=== PATIENT | female | born 1965 | race Caucasian/White ===

== ENCOUNTER 2022-07-26 06:04 | Observation (INO) ==
--- NOTE | 2022-07-02 16:25 | PAT Medication Instructions ---
Medication Instructions Date of Service July 02, 2022 Home Medications bupropion HCl 150 mg 24 hr tablet, extended release (Wellbutrin XL) 150 mg PO QAM cholecalciferol (vitamin D3) 125 mcg (5,000 unit) tablet (Vitamin D3) 125 mcg PO QAM coenzyme Q10 10 mg capsule (Co Q-10) 10 mg PO QAM collagen,hydrolysate 500 mg-biotin 800 mcg-ascorbic acid 50 mg capsule (Collagen 1500 Plus C) 3 cap PO HS cyanocobalamin (vitamin B-12) 5,000 mcg disintegrating tablet 5,000 mcg PO HS duloxetine 60 mg capsule,delayed release 60 mg PO BID estradiol 0.1 mg/24 hr weekly transdermal patch 0.1 mg topical 2XWK gabapentin 300 mg capsule 300 mg PO HS lansoprazole 30 mg capsule,delayed release 30 mg PO BID levothyroxine 50 mcg tablet 50 mcg PO QAM One-A-Day Women's 50 Plus 1 tab PO QAM naproxen sodium 220 mg tablet (Aleve) 440 mg PO BID ASK your surgeon for instructions naproxen sodium 220 mg tablet (Aleve) 440 mg PO BID STOP taking 2 weeks before surgery (or as soon as possible if surgery is within 2 weeks) coenzyme Q10 10 mg capsule (Co Q-10) 10 mg PO QAM collagen,hydrolysate 500 mg-biotin 800 mcg-ascorbic acid 50 mg capsule (Collagen 1500 Plus C) 3 cap PO HS STOP taking 24 hours before surgery estradiol 0.1 mg/24 hr weekly transdermal patch 0.1 mg topical 2XWK DO NOT take the morning of surgery cholecalciferol (vitamin D3) 125 mcg (5,000 unit) tablet (Vitamin D3) 125 mcg PO QAM One-A-Day Women's 50 Plus 1 tab PO QAM Take morning of surgery With a small sip of water, OTHERWISE NOTHING TO EAT OR DRINK AFTER MIDNIGHT: bupropion HCl 150 mg 24 hr tablet, extended release (Wellbutrin XL) 150 mg PO QAM duloxetine 60 mg capsule,delayed release 60 mg PO BID lansoprazole 30 mg capsule,delayed release 30 mg PO BID levothyroxine 50 mcg tablet 50 mcg PO QAM Take evening before surgery cyanocobalamin (vitamin B-12) 5,000 mcg disintegrating tablet 5,000 mcg PO HS duloxetine 60 mg capsule,delayed release 60 mg PO BID gabapentin 300 mg capsule 300 mg PO HS lansoprazole 30 mg capsule,delayed release 30 mg PO BID Other Notes If you have any questions please call us at [phone] or [phone] or [phone] or [phone]
--- NOTE | 2022-07-04 12:08 | Anesthesiology Consultation ---
Date of Service July 04, 2022 Assessment & Plan (1) Encounter for pre-operative examination: - Pt reports upcoming PCP pre-op evaluation 07/06/22. - PAT testing to be faxed to PCP. Outpatient joint assessment: Patient is currently scheduled for inpatient pathway. If re-evaluated pending system levels during current pandemic/surgeon requests outpatient pathway, patient is/is not acceptable candidate for outpatient joint program from anesthesia standpoint pending surgeon's office assessment of pt motivation/support/completion of same day joint program preop requirements. Chart Review Chart Review: Pending: Refer to Additional Notes / Consult section and Patient seen in Pre Admission Testing Teaching & Discussion Pre-Anesthesia Teaching/Discussion Notes: Instructed NPO after midnight before surgery, except medications with 15 cc of water. Medication instructions provided according to the PAT guidelines. History Surgery Operation Date: 07/26/22 08:50 Proposed Procedures p Right Total Hip Arthroplasty - Donnie Dove MD Height/Weight Height: 5 ft 6 in Weight: 100.698 kg Allergies Allergy/AdvReac Type Severity Reaction Status Date / Time No Known Allergies Allergy Verified 06/29/22 11:17 Medications Home Medications Medication Instructions Recorded Confirmed Last Taken bupropion HCl 150 mg 24 hr tablet, 150 mg PO QAM 06/29/22 06/29/22 Unknown extended release (Wellbutrin XL) cholecalciferol (vitamin D3) 125 125 mcg PO QAM 06/29/22 06/29/22 Unknown mcg (5,000 unit) tablet (Vitamin D3) coenzyme Q10 10 mg capsule (Co 10 mg PO QAM 06/29/22 06/29/22 Unknown Q-10) collagen,hydrolysate 500 mg-biotin 3 cap PO HS 06/29/22 06/29/22 Unknown 800 mcg-ascorbic acid 50 mg capsule (Collagen 1500 Plus C) cyanocobalamin (vitamin B-12) 5,000 mcg PO HS 06/29/22 06/29/22 Unknown 5,000 mcg disintegrating tablet duloxetine 60 mg capsule,delayed 60 mg PO BID 06/29/22 06/29/22 Unknown release estradiol 0.1 mg/24 hr weekly 0.1 mg topical 2XWK 06/29/22 06/29/22 Unknown transdermal patch gabapentin 300 mg capsule 300 mg PO HS 06/29/22 06/29/22 Unknown lansoprazole 30 mg capsule,delayed 30 mg PO BID 06/29/22 06/29/22 Unknown release levothyroxine 50 mcg tablet 50 mcg PO QAM 06/29/22 06/29/22 Unknown bdfbpvbhbjvu-tjcuqmcs-pmezdya-folic 1 tab PO QAM 06/29/22 06/29/22 Unknown acid 400 mcg-vit K1 20 mcg tablet (One-A-Day Women's 50 Plus) naproxen sodium 220 mg tablet 440 mg PO BID 06/29/22 06/29/22 Unknown (Bam) Past Medical History Medical History Chronic back pain Depression Fibromyalgia GERD (gastroesophageal reflux disease) controlled, stable per pt Hx MRSA infection 2018 > resolved Hyperlipidemia Hypothyroidism IBS (irritable bowel syndrome) Patient denies h/o stroke, seizures, heart attack, heart failure, DM, HTN, blood clots or blood transfusions. Exercise / Class Metabolic Activity III < 4 Walking/Shop/Light housework (denies CP or SOB with usual activities, less than 8 steps in home) Past Surgical History Surgical History H/O abdominoplasty History of colonoscopy History of dilatation and curettage History of esophagogastroduodenoscopy (EGD) History of hysterectomy History of nasal septoplasty History of Ruthie fundoplication History of tonsillectomy History of tooth extraction Hx of LASIK Nausea and vomiting after administration of anesthetic agent Single episode Past Anesthesia History No Hx of Anesthesia Complications and Other (sister slow to wake) History of PONV No Hx of Motion Sickness and History of PONV (isolated episodes, denies any PONV with subsequent surgeries) Social History Smoking Status: Former smoker Do You Dip or Chew Tobacco: No Smoking End Date: 30 yrs ago Hx Alcohol Use: Yes Alcohol type: beer alcohol intake frequency: a few times a month Hx Substance Use: No substance use type: does not use Review of Systems Snoring, denies witnesed apneas. Patient denies chest pain, shortness of breath, dyspnea on exertion, fever, chills, cough, wheezing, or palpitations. Physical Exam Vital Signs Vitals BP 130/84 P 75 TEMP 98.9 SP02 100% on RA RESP 18 Physical Full cervical extension range of motion without pain TMD 3.5 finger breadths Mallampati Score 3 Dentition: intact, permanent bridge right upper side and several caps throughout; denies chipped or loose teeth Lungs: normal respiratory effort. Clear throughout to auscultation, no adventitious breath sounds Cardiac: regular rate and rhythm, no murmurs noted Carotid arteries: negative bruit bilat Lab Results Anesthesia Preop Results Results Anesthesia Widget: WBC 6.80 K/ul (4.8-10.8) 07/04/22 Hgb 14.3 g/dl (12.0-16.0) 07/04/22 Hct 42.1 % (34.1-44.9) 07/04/22 Plt 294 K/uL (130-400) 07/04/22 Na 140 mmol/L (136-145) 07/04/22 K 4.9 mmol/L (3.5-5.1) 07/04/22 Cl 106 mmol/L (98-107) 07/04/22 CO2 27 mmol/L (21-32) 07/04/22 BUN 16 mg/dl (6-23) 07/04/22 Creat 0.75 mg/dl (0.6-1.2) 07/04/22 Glucose Level 95 mg/dl (70-99(Fasting)) 07/04/22 PT 10.4 Seconds (9.0-12.0) 07/04/22 PTT 27.0 Seconds (21.0-31.0) 07/04/22 INR 1.0 (0.9-1.1) 07/04/22 HA1c 5.4 % (4.5-5.6) 07/04/22 Urine Color Yellow 07/04/22 Urine Appearance Clear (Clear) 07/04/22 Urine pH 6.5 (4.5-7.5) 07/04/22 Urine Specific [place] 1.008 (1.000-1.030) 07/04/22 Urine Protein Negative (Negative) 07/04/22 Urine Glucose (UA) Negative (Negative) 07/04/22 Urine Ketones Negative (Negative) 07/04/22 Urine Blood Negative (Negative) 07/04/22 Urine Nitrite Negative (Negative) 07/04/22 Urine Bilirubin Negative (Negative) 07/04/22 Urine Urobilinogen Negative (Negative) 07/04/22 Urine Leukocyte Esterase Negative (Negative) 07/04/22 Blood Type B Positive 07/04/22 Antibody Screen NEGATIVE 07/04/22 Testing Electrocardiogram Date: 07/04/22 NSR, rate 69 bpm Left anterior fascicular block COVID-19 Risk Screen Screening Information COVID-19 Screen Date: 07/04/22 Exposure 21 Days Family/Household +COVID Last 21 Days: No Exposure 10 Days Any COVID Exposure Last 10 Days: No Symptoms Last 10 Days Experienced COVID Sx Last 10 Days: No + COVID 0-90 Days COVID + in Last 0-90 Days: No
--- NOTE | 2022-07-04 13:59 | History & Physical Report ---
Date of Service July 04, 2022 Assessment & Plan (1) Osteoarthritis of right hip: Plan: PRE-OP Diagnosis: Right Hip Osteoarthritis Planned Procedure: Right Total Hip Arthroplasty Plan: Patient is scheduled to undergo this procedure at the [facility] with a 23-hour observation admission with Dr. Dove on , July 26, 2022. Risks and complications of the procedure such as: Infection, bleeding, pain, scarring, nerve blood vessel damage, weakness, wound problems, stiffness, incomplete relief of symptoms, hardware failure, hardware loosening, wear, fracture, tendon or ligament injury, dislocation, leg length inequality, blood clots, Embolism, heart attack, stroke and were explained to the patient at her visit today. Informed consent to perform the procedure was obtained on the morning of surgery. Patient also understands risks of proceeding with surgical intervention during the COVID-19 pandemic. Currently patient is asymptomatic and she is not in contact with anyone that is currently positive for the virus. Patient has an appointment to meet with anesthesia later this morning and while there will obtain CBC with differential, complete metabolic panel, PT/INR, blood type and screen, urinalysis, urine culture and sensitivity, EKG, hemoglobin A1c and a nasal culture for MRSA. Patient will also need preoperative medical clearance from their primary care provider. Patient states that she plans on doing in-home physical therapy for the first 1 to 2 weeks postoperatively with [facility] home [facility]. Patient states that she will most likely elect to do outpatient physical therapy at a facility near her home. Patient will need a walker, raised toilet seat, shower chair and a hip kit. During today's visit we reviewed the total hip packet as well as precautions. We discussed discharge planning from the hospital. I provided paperwork to obtain a handicap placard for their vehicle. We discussed lectures offered by [facility] in regards to joint replacement surgery via Zoom. I advised the patient that upon discharge from hospital we will prescribe a narcotic pain medication and anti-inflammatory. Patient will also be on an 81 mg aspirin twice daily for blood clot prevention. Patient will be scheduled for 2-week postoperative follow-up visit with myself on August 08 at 10:45 AM. At that visit we will Provide the patient with an order for outpatient physical therapy and rehab protocol. Patient verbalizes understanding of all information provided during today's visit. She thanks for the care that she received. If she has questions or concerns that should arise prior to her surgery, she will contact clinic. This chart was completed utilizing [email or web address] voice recognition software. Grammatical errors, random word insertions, pronoun errors, and in complete sentences are an occasional consequence of the system. Any questions or concerns about the content, text, or information contained within the body of this dictation should be addressed directly to the physician for clarification. History of Present Illness Chief Complaint: Chief Complaint: Right hip pain Primary Care Provider: NO PCP History of Present Illness (including history relevant to procedure): This 57-year-old female presents to the clinic today for preoperative history and physical. Patient complains of a 10-year history of right hip and lower back pain. She was followed by pain management who felt that the issues were stemming from her back however for the past 6 months she has noticed her most significant pain in the right hip. She states that she received a ultrasound- guided corticosteroid injection that only alleviated her pain for about 3 days. Patient states that her pain is exacerbated with walking for long periods of time as well as with ascending or descending stairs. She states that recently the pain has migrated from her SI area to the groin. She states that her range of motion is very limited. She has failed all conservative measures and is ready to proceed with surgical intervention. Review Of Systems: A 12 point review of systems is performed and is unremarkable except for those things stated in the HPI and past medical history. Past Medical History: Problems: Right hip pain Overweight Hypercholesterolemia depression Hypothyroidism GERD Lower back pain History of MRSA Procedure History Procedure Procedure Date Comments Ruthie fundoplication Hysterectomy Tummy tuck Tonsillectomy LASEK surgery Allergies and Sensitivities: NKA Social history: Patient states she occasionally consumes alcohol (1-2 drinks per week). Patient states that she quit smoking in 1994. She denies any illicit drug use Family history: Heart disease, pernicious anemia and cancer Current Home Meds: (Last Updated 07/04 11:10) DULoxetine (DULoxetine 60 mg oral delayed release capsule) 60 mg PO Daily estradiol (Estradiol Patch 0.1 mg/24 hours twice weekly transdermal film, extended release) gabapentin (gabapentin 300 mg oral capsule) 300 mg PO Daily lansoprazole 30 mg PO Daily levothyroxine (levothyroxine 50 mcg (0.05 mg) oral tablet) 50 mcg PO Daily Allergies Allergy/AdvReac Type Severity Reaction Status Date / Time No Known Allergies Allergy Verified 06/29/22 11:17 Home Medications Medication Instructions Recorded Confirmed Type bupropion HCl 150 mg 24 hr tablet, 150 mg PO QAM 06/29/22 06/29/22 History extended release (Wellbutrin XL) cholecalciferol (vitamin D3) 125 125 mcg PO QAM 06/29/22 06/29/22 History mcg (5,000 unit) tablet (Vitamin D3) coenzyme Q10 10 mg capsule (Co 10 mg PO QAM 06/29/22 06/29/22 History Q-10) collagen,hydrolysate 500 mg-biotin 3 cap PO HS 06/29/22 06/29/22 History 800 mcg-ascorbic acid 50 mg capsule (Collagen 1500 Plus C) cyanocobalamin (vitamin B-12) 5,000 mcg PO HS 06/29/22 06/29/22 History 5,000 mcg disintegrating tablet duloxetine 60 mg capsule,delayed 60 mg PO BID 06/29/22 06/29/22 History release estradiol 0.1 mg/24 hr weekly 0.1 mg topical 2XWK 06/29/22 06/29/22 History transdermal patch gabapentin 300 mg capsule 300 mg PO HS 06/29/22 06/29/22 History lansoprazole 30 mg capsule,delayed 30 mg PO BID 06/29/22 06/29/22 History release levothyroxine 50 mcg tablet 50 mcg PO QAM 06/29/22 06/29/22 History rncnhuqgdupd-efxjugte-gqxzlmh-folic 1 tab PO QAM 06/29/22 06/29/22 History acid 400 mcg-vit K1 20 mcg tablet (One-A-Day Women's 50 Plus) naproxen sodium 220 mg tablet 440 mg PO BID 06/29/22 06/29/22 History (Aleve) Past Med/Surg History Medical History Chronic back pain Depression Fibromyalgia GERD (gastroesophageal reflux disease) controlled, stable per pt Hx MRSA infection 2018 > resolved Hyperlipidemia Hypothyroidism IBS (irritable bowel syndrome) Surgical History H/O abdominoplasty History of colonoscopy History of dilatation and curettage History of esophagogastroduodenoscopy (EGD) History of hysterectomy History of nasal septoplasty History of Ruthie fundoplication History of tonsillectomy History of tooth extraction Hx of LASIK Nausea and vomiting after administration of anesthetic agent Single episode Social History Smoking Status: Former smoker Second Hand Exposure: No; Hx Alcohol Use: Yes Alcohol type: beer Hx Substance Use: No Preferred Language: Swedish Communication Ability: Effective Productivity Engineer Required: No Beliefs That Will Affect Care: None Current Living Situation: Spouse Feels Safe at Home: Yes Assistive Devices: Glasses Review of Systems All systems reviewed & are unremarkable except as noted in Subjective Physical Exam Physical Exam: Physical Exam: (relevant to the procedure, including heart and lung evaluation) General: Alert and oriented x3 with proper grooming and hygiene Eyes: Pupils are equal and reactive to light with accommodation. Extraocular lids are intact Throat: Deferred due to COVID-19 precautions Cardiac: Regular rate and rhythm no murmurs or gallops appreciated Lungs: Clear to auscultation throughout with no wheezing, rales or rhonchi Abdomen: Obese, nondistended, nontender with NABS Extremities: Right hip; flexion is limited to 110 degrees with referred pain to the groin. Internal rotation to 0 degrees and external rotation to 20 degrees. Stinchfield and straight leg raise test are both positive. Patient has te nderness to palpation in the groin area. She has referred pain to this area with passive AB and AD duction of her lower extremity. Patient is neurovascular intact in the right lower extremity. Neuro: Cranial nerves II through XII intact no motor or sensory deficit Skin: Normal in appearance with no open skin areas or discharge Results & Data ([facility]) Diagnostic Findings Studies (relevant to the procedure): XR include, AP pelvis and 2 views of each hip with the patient: showed b/l central pattern osteoarthritis R>L.
[~2022-07-26 06:04] MED LIST: ACETAMINOPHEN 500 MG TAB PO SCH; CeleBREX 200 MG CAP PO SCH; FAMOTIDINE 20 MG TAB PO SCH; LR 500ML BOLUS, THEN 15ML/HR IV SCH; LR 60ML/HR IV SCH; ROPIVACAINE 0.5% HCL/PF 150 MG, BUPIVACAINE 0.75% MPF 20 ML, EPINEPHrine 0.15 MG, Ketor... INFIL SCH; Scopolamine 1 MG TDSY TD SCH; TRANEXAMIC ACID 1,000 MG **IV Intra-op IV SCH; TRANEXAMIC ACID 1,000 MG **IV Pre-op IV SCH; VANCOMYCIN HCL 1,500 MG in SODIUM CHLORIDE 0.9% 500 ML IV SCH; ceFAZolin 2000MG 2,000 MG/15 ML SYR IV SCH; dexAMETHasone 4 MG TAB PO SCH; traMADol HCL 50 MG TABLET PO SCH
[2022-07-26] MEDS ORDERED: BUPIVACAINE 0.5 % 5 MG/1 ML PF 10ML VIAL ONE (06:29)
[2022-07-26] MEDS ORDERED: MIDAZOLAM HCL 1 MG/ML 2ML VIAL ONE (07:30)
[2022-07-26] MEDS ORDERED: PROPOFOL IV EMULSION 10 MG/ML 20 ML VIAL IV ONE ×4 (07:30→10:21)
[2022-07-26] MEDS ORDERED: ePHEDrine sulfate 50 MG/ML AMP IV PRN (08:17)
[2022-07-26] MEDS ORDERED: ONDANSETRON INJ 2 MG/ML 2 ML VIAL IV PRN ×2 (08:17→11:12)
[2022-07-26] MEDS ORDERED: ATROPINE SULFATE 0.1 MG/ML 10ML SYR IV PRN (08:17)
[2022-07-26] MEDS ORDERED: fentaNYL citrate 100 MCG/2 ML VIAL IV PRN (08:17)
--- NOTE | 2022-07-26 08:52 | History & Physical Bridge Note ---
Date of Service July 26, 2022 History & Physical Bridge Note I have examined the patient, reviewed the History & Physical and in the interval since the performance of the History & Physical I have noted the following changes of clinical significance: no changes noted
[2022-07-26] MEDS ORDERED: ORTHO JOINT ANESTHETIC ONE (09:10)
[2022-07-26] MEDS ORDERED: ONDANSETRON INJ 2 MG/ML 2 ML VIAL ONE (09:45)
--- NOTE | 2022-07-26 11:04 | Operative Report ---
Post Operative Report Pre & Post Diagnosis Operation Date: 07/26/22 09:10 Pre-Op Diagnosis: Right hip Osteoarthritis Post-Op Diagnosis: Right hip Osteoarthritis I identified the patient and participated in the time-out.: Yes Procedure Operation Date: 07/26/22 09:10 Actual Procedures p Right Total Hip Arthroplasty(Right) - Donnie Dove MD Surgeon Donnie Dove MD Bleacher Operator NITO Jasmine PA-C. No resident or fellow was available to assist. Estimated Blood Loss 100 Findings Consistent with Post-Op Diagnosis Fluids 1750 cc Specimens Right femoral head Anesthesia Type Spinal MAC Complications none Disposition Disposition: Recovery Room Indications 57-year-old female, right hip pain refractory to conservative management. X- rays demonstrate severe osteoarthritis with joint space narrowing and subchondral sclerosis. I had a long discussion with her about the risks and benefits of surgery, alternatives, and expected outcomes. After reviewing all these she elected to proceed with surgery. All questions were answered. Informed consent was signed. Description of Procedure Patient was identified in the preoperative holding area and the surgical site, right hip, was marked. A spinal anesthetic was placed, then the patient was brought back to the main operating room, placed in the operating table and moved into the lateral decubitus position. Axillary roll was placed. All bony prominences were padded. Perioperative antibiotics and tranexamic acid 1 gram IV were administered. Operative extremity was prepped and draped in the normal sterile fashion. Prior to incision a multidisciplinary timeout was called. All in the room were in agreement. We began by making an incision for a posterior approach to the hip. We dissected down through subcutaneous tissues to the level of the fascia. The fascia was incised in line with the incision. Charnley bow was placed. The trochanteric bursa was excised. The piriformis and short external rotators were dissected off the posterior aspect of the hip. A box cut was made in the capsule. The femoral head was dislocated. The femoral neck cut was made at our preoperative template. The acetabulum was then exposed. The labrum was sharply excised. Contents of the cotyloid fossa were removed with electrocautery. We then began reaming at a size 8 mm less than our preoperative template. We reamed up by [address] way up to a size 54 mm cup. This gave us good bleeding cancellus bone circumferentially. The acetabulum was then irrigated out and dried. The real [place] Gription cup was then impacted down into position with 45 degrees of lateral opening and 25 degrees of anteversion. A single cancellous bone screw was placed up into the ilium. Excellent fixation was obtained. A trial liner for a 36 mm femoral head was then placed. Next we turned our attention to the femur. The lateral neck was removed with a box osteotome. Intramedullary guide was used followed by the lateralizing reamer. We then reamed up to a size 4 [place] stem. We then broached all the way up to a size 3. We began trialing with a high offset neck and a +5 head. Hip was reduced. Leg lengths were symmetric. The hip was stable in extension and external rotation, and stable in the sleeper position. At 90 degrees of hip flexion the hip could be internally rotated 35 degrees before levering out of the cup. Although the stability was reasonable I elected to trial a +4 face changing liner in the acetabulum to see if this would improve the stability exam. The acetabulum was re-exposed, and the neutral trial liner was removed, then replaced with a +410 degree face changing liner. The femoral broach was placed back in and we downsized the offset of the head to +1.5 given that we had increased the offset on the acetabulum. We then retrialed her stability exam. Again the leg lengths were symmetric, and she had full extension and external rotation. At 90 degrees of hip flexion she could now internally rotate 45 degrees before levering out of the cup. I was happy with the stability exam, therefore the trial components were removed and the real Altrx polyethylene +4, 10 degree face changing liner for a 36 mm femoral head was then impacted into the shell. The locking mechanism was checked to ensure that it had engaged which it had. The femur was re-exposed. The femoral canal was irrigated and dried. The real size 3 high offset [place] femoral stem was opened up. This was impacted down into position. It sat at the same level as the femoral trial. Therefore the 36 mm ceramic femoral head with a +1.5 mm offset was opened up and gently impacted down onto the trunnion. The hip was atraumatically reduced. Another 1 gram of IV tranexamic acid was started prior to closure. The wound was irrigated out with sterile Betadine solution. The periarticular injection cocktail was then placed. The short external rotators, piriformis, and posterior capsule were repaired through drill holes in the greater trochanter using #2 Vicryl. The fascia was run with a looped #1 PDS. The subcutaneous layer was closed with #1 PDS. The dermal layer was closed with 2-0 Vicryl. Zip line was used for the skin followed by a Silverlon dressing. A compressive dressing was then placed. The patient was then rolled supine. Leg lengths were rechecked and were symmetric. An abduction pillow was placed. Sedation was lifted and the patient was transferred to recovery room in stable condition. Summary of implants: Depuy [place] Gription Acetabular Shell Sector Cup, 54 mm outer diameter [place] Cancellous bone screw, 6.5 x 35 mm [place] hole eliminator [place] Altrx Polyethylene +4, 10 degree face changing liner, with a 36 mm in ner diameter DePuy Winchester Femoral stem with [place], 12/14 taper, size 3 high offset 36 mm ceramic femoral head with +1.5 offset Postoperative course: Patient will be admitted to the hospital from the recovery room. Patient will be weightbearing as tolerated with posterior hip precautions. Aspirin for DVT prophylaxis I attest to the content of the Intraoperative Record and any orders documented therein. Any exceptions are noted below.
--- NOTE | 2022-07-26 11:10 | Operative Report ---
Post Operative Report Pre & Post Diagnosis Operation Date: 07/26/22 09:10 Pre-Op Diagnosis: Right hip Osteoarthritis Post-Op Diagnosis: Right hip Osteoarthritis I identified the patient and participated in the time-out.: Yes Procedure Operation Date: 07/26/22 09:10 Actual Procedures p Right Total Hip Arthroplasty(Right) - Donnie Dove MD Surgeon Donnie Dove MD Aromatherapist NITO Jasmine PA-C. No resident or fellow was available to assist. Estimated Blood Loss 100 Findings Consistent with Post-Op Diagnosis Specimens femoral head Description of Procedure I was present during the entire procedure assisting with positioning, prepping, draping, wound retraction, wound closure, dressing and abduction pillow placement. No fellow present. Please see Dr. Dove procedure note for specifics of the case. I attest to the content of the Intraoperative Record and any orders documented therein. Any exceptions are noted below.
[2022-07-26] MEDS ORDERED: oxyCODONE HCL IR 5 MG TAB (IMMEDIATE RELEASE) PO PRN (11:12)
[2022-07-26] MEDS ORDERED: bisacodyL 10 MG SUPP PR PRN (11:12)
[2022-07-26] MEDS ORDERED: ALUMINUM/MAGNESIUM SUSP 30 ML UDC PO PRN (11:12)
[2022-07-26] MEDS ORDERED: HYDROmorphone INJ 0.5 MG/0.5 ML SYR IV PRN (11:12)
[2022-07-26] MEDS ORDERED: diphenhydrAMINE 50 MG/ML VIAL IV PRN (11:12)
[2022-07-26] MEDS ORDERED: MAGNESIUM HYDROXIDE SUSP 30 ML UDC PO PRN (11:12)
[2022-07-26] MEDS ORDERED: NALOXONE HCL 0.4 MG/1 ML VIAL/CARP IV PRN (11:12)
[2022-07-26] MEDS ORDERED: METOCLOPRAMIDE HCL INJ 5 MG/ML 2 ML VIAL IV PRN (11:12)
--- NOTE | 2022-07-26 11:42 | XRay Report ---
XR pelvis 1-2V routine CLINICAL HISTORY: Postoperative evaluation. COMPARISON: Pelvis radiograph July 04, 2022. FINDINGS: Alignment of the total right hip arthroplasty is anatomic. There is no periprosthetic frac ture or unexpected radiopaque foreign body. There is an acetabular screw. Pelvic calcifications favor phleboliths. These are unchanged. IMPRESSION: Expected findings following total right hip arthroplasty. ACT 112: Negative or not required by law. Electronically signed by: Dwaine Radford M.D. 07/26/2022 11:40 AM
[2022-07-26] MEDS ORDERED: FLUARIX QUADRIVALENT 0.5 ML SYR IM ONE (12:07)
[2022-07-26] MEDS: SODIUM CHLORIDE 0.9% 1000ML 1,000 ML IV SCH ×2 (12:14→22:16)
[2022-07-26] MEDS: KETOROLAC TROMETHAMINE 15 MG/ML VIAL IV SCH ×2 (13:22→18:01)
[2022-07-26] MEDS: ACETAMINOPHEN 500 MG TAB PO SCH ×2 (14:10→22:04)
--- NOTE | 2022-07-26 14:50 | Anesthesiology Progress Note ---
Date of Service July 26, 2022 Anesthesia Post Procedure Vital Signs Vital Signs: Temp Pulse Pulse Resp BP Pulse Ox O2 Del Method 07/26/22 13:55 36.5 C 66 17 109/72 97 Room Air 07/26/22 12:55 36.5 C 67 18 103/63 99 Room Air 07/26/22 12:27 36.4 C L 61 17 110/74 95 Room Air 07/26/22 11:57 36.4 C L 63 18 112/73 96 Room Air 07/26/22 11:40 36.6 C 58 L 15 120/74 94 Room Air 07/26/22 11:30 63 16 134/78 100 Oxymask 07/26/22 11:20 59 L 19 120/74 100 Oxymask 07/26/22 11:11 36.6 C 61 17 113/72 100 Oxymask 07/26/22 06:27 36.8 C 70 20 150/81 H 99 Room Air O2 Flow Rate 07/26/22 13:55 07/26/22 12:55 07/26/22 12:27 07/26/22 11:57 07/26/22 11:40 07/26/22 11:30 10 07/26/22 11:20 10 07/26/22 11:11 10 07/26/22 06:27 Pain Intensity Right Hip: Pain Intensity: 8 Transfer of Care Handoff Completed per policy Notes Mental Status: alert / awake / arousable Patient Amnestic to Procedure: Yes Nausea / Vomiting: adequately controlled Pain: adequately controlled Airway Patency, RR, SpO2: stable & adequate BP & HR: stable & adequate Hydration State: stable & adequate Neuraxial Anesthesia: was administered and sensory block is resolving Anesthetic Complications: no major complications apparent and Pt Satisfied with anesthetic care
[2022-07-26] MEDS: Scopolamine CHECK PATCH PLACEMENT SCH (16:16)
[2022-07-26] MEDS: ceFAZolin 2000MG 2,000 MG/15 ML SYR IV SCH (17:08)
[2022-07-26] MEDS ORDERED: TRANEXAMIC ACID / 0.7% NACL 1,000 MG/100 ML BAG IV SCH (17:15)
[2022-07-26] MEDS: DOCUSATE SODIUM 100 MG CAP PO SCH (20:10)
[2022-07-26] MEDS: ASPIRIN 81 MG ECTAB PO SCH (20:10)
[2022-07-26] MEDS: PANTOprazole 40 MG TAB PO SCH (20:11)
[2022-07-26] MEDS: DULoxetine HCL 60 MG CAP PO SCH (20:12)
[2022-07-26] MEDS ORDERED: SENNA 8.6 MG TAB PO SCH (21:00)
[2022-07-26] MEDS ORDERED: CYANOCOBALAMIN (B-12) 500 MCG TABLET PO SCH (21:00)
[2022-07-26] MEDS ORDERED: GABAPENTIN 300 MG CAP PO SCH (21:00)
[2022-07-26] MEDS ORDERED: CeleBREX 200 MG CAP PO SCH (21:00)
[2022-07-27] MEDS: KETOROLAC TROMETHAMINE 15 MG/ML VIAL IV SCH ×2 (00:51→06:07)
[2022-07-27] MEDS: ceFAZolin 2000MG 2,000 MG/15 ML SYR IV SCH (00:51)
[2022-07-27] MEDS: Scopolamine CHECK PATCH PLACEMENT SCH ×2 (00:52→08:31)
[2022-07-27] MEDS: ACETAMINOPHEN 500 MG TAB PO SCH (06:07)
[2022-07-27] MEDS ORDERED: LEVOTHYROXINE SODIUM 50 MCG TABLET PO SCH (06:30)
[2022-07-27] MEDS ORDERED: dexAMETHasone 4 MG TAB PO SCH (08:00)
[2022-07-27 08:13] LABS: Basophils # (auto) 0.02 K/uL (0-0.2); Basophils % (auto) 0.2 %; Eosinophils # (auto) 0.03 K/uL (0-0.50); Eosinophils % (auto) 0.2 %; Hematocrit (blood only) 33.8 % (34.1-44.9); Hemoglobin 11.2 g/dl (12.0-16.0); Immature Granulocytes # (auto) 0.07 K/uL (0.00-0.02); Immature Granulocytes % (auto) 0.5 %; Lymphocytes # (auto) 1.55 K/uL (1.2-3.4); Lymphocytes % (auto) 11.7 %; Mean Corpuscular Hemoglobin 28.9 pg (25.0-34.0); Mean Corpuscular Hgb Conc 33.1 g/dL (32.0-36.0); Mean Corpuscular Volume 87.1 fL (80.0-100.0); Mean Platelet Volume 10.5 fL (9.4-12.3); Monocytes # (auto) 1.16 K/uL (0.24-0.82); Monocytes % (auto) 8.7 %; Neutrophils # (auto) 10.44 K/uL (1.4-6.5); Neutrophils % (auto) 78.7 %; Platelet Count 259 K/uL (130-400); RDW Coefficient of Variation 12.5 % (11.5-14.5); RDW Standard Deviation 40.1 fL (36.4-46.3); Red Blood Count 3.88 M/uL (3.93-5.22); White Blood Count 13.27 K/ul (4.8-10.8)
[2022-07-27] MEDS: ASPIRIN 81 MG ECTAB PO SCH (08:32)
[2022-07-27] MEDS: DOCUSATE SODIUM 100 MG CAP PO SCH (08:32)
[2022-07-27] MEDS: PANTOprazole 40 MG TAB PO SCH (08:32)
[2022-07-27] MEDS ORDERED: NON-FORMULARY MEDICATION (Coenzyme Q10 [Co Q-10] 10 mg Capsule) PO SCH (09:00)
[2022-07-27] MEDS ORDERED: CeleBREX 200 MG CAP PO SCH (09:00)
[2022-07-27] MEDS ORDERED: buPROPion XL 150 MG TABCR PO SCH (09:00)
[2022-07-27] MEDS ORDERED: ESTRADIOL 0.1 MG/24hrs TDSY TD SCH (09:00)
[2022-07-27] MEDS ORDERED: CHOLECALCIFEROL 5,000 UNITS 125 MCG TAB PO SCH (09:00)
[2022-07-27] MEDS ORDERED: [UNRECOGNIZED DRUG - OTHER] PO SCH (09:00)
[2022-07-27] MEDS ORDERED: MULTIVITAMIN TAB PO SCH (09:00)
[2022-07-27 09:27] LABS: BUN Creatinine Ratio 22.4 (10-20); Calcium 8.4 mg/dl (8.5-10.1); Creatinine Clr Calc Pharmacy 108.2 ml/min; Est GFR (African American) 112.3 ml/min; Est GFR (Non-African American) 96.9 ml/min; Potassium 4.7 mmol/L (3.5-5.1)
[2022-07-27] MEDS: DULoxetine HCL 60 MG CAP PO SCH (09:46)
--- NOTE | 2022-07-27 10:43 | Orthopedic Progress Note ---
Date of Service July 27, 2022 Assessment & Plan (1) S/P total hip arthroplasty: Plan: Weightbearing as tolerated with walker assistance Total hip precautions reviewed PT/OT Ice with easy wrap Abduction pillow use x6 weeks postoperatively Keep Silverlon dressing in place until 2-week follow-up DVT prophylaxis with aspirin and VIRGEN stockings Pain control with p.o. medications Plan is to discharge home today with in-home physical therapy beginning tomorrow Follow-up with [facility] orthopedics as previously scheduled. With questions contact the clinic at [phone] Admission and Anticipated Discharge Date Admission Date: July 26, 2022 Subjective This 57-year-old female is day 1 status post right total hip arthroplasty. Jessica ent states she is doing very well. She states that her pain is well controlled with p.o. pain medication. She states that she has been able to ambulate from her bedside chair to the bathroom with the aid of her walker without difficulty. Currently she denies chest pain, shortness of breath, fever, chills, sweats or numbness or tingling in her right lower extremity. Review of Systems Review of Systems: All systems reviewed & are unremarkable except as noted in Subjective Physical Exam Physical Exam: Right hip: Outer dressing was removed. Silverlon is clean dry and intact and reinforced on the proximal portion with a Tegaderm. Patient is able to perform an active straight leg raise test. She is able to actively dorsi and plantarflex her foot without issue. Quad strength 3+ out of 5. Logroll test negative. Patient has no pain with light passive hip flexion to 90 degrees, as well as with light passive internal or external hip rotation. She is neurovascularly intact right lower extremity. Results & Data ([facility]) Vital Signs (Past 12 Hours) Vital Signs Temp Pulse Resp BP BP Pulse Ox O2 Del Method 07/27/22 07:19 36.7 C 74 14 107/69 99 Room Air 07/27/22 04:00 36.9 C 67 16 99/63 L 96 Room Air 07/27/22 00:52 36.6 C 61 16 113/72 95 Room Air Diagnostic Findings Laboratory Results WBC 13.27 K/ul (4.8-10.8) H 07/27/22 07:49 RBC 3.88 M/uL (3.93-5.22) L 07/27/22 07:49 Hgb 11.2 g/dl (12.0-16.0) L 07/27/22 07:49 Hct 33.8 % (34.1-44.9) L 07/27/22 07:49 MCV 87.1 fL (80.0-100.0) 07/27/22 07:49 MCH 28.9 pg (25.0-34.0) 07/27/22 07:49 MCHC 33.1 g/dL (32.0-36.0) 07/27/22 07:49 RDW Std Deviation 40.1 fL (36.4-46.3) 07/27/22 07:49 RDW Coeff of Agustín 12.5 % (11.5-14.5) 07/27/22 07:49 Plt Count 259 K/uL (130-400) 07/27/22 07:49 MPV 10.5 fL (9.4-12.3) 07/27/22 07:49 Immature Gran % (Auto) 0.5 % 07/27/22 07:49 Neut % (Auto) 78.7 % 07/27/22 07:49 Lymph % (Auto) 11.7 % 07/27/22 07:49 Aiken % (Auto) 8.7 % 07/27/22 07:49 Eos % (Auto) 0.2 % 07/27/22 07:49 Baso % (Auto) 0.2 % 07/27/22 07:49 Neut # (Auto) 10.44 K/uL (1.4-6.5) H 07/27/22 07:49 Lymph # (Auto) 1.55 K/uL (1.2-3.4) 07/27/22 07:49 Aiken # (Auto) 1.16 K/uL (0.24-0.82) H 07/27/22 07:49 Eos # (Auto) 0.03 K/uL (0-0.50) 07/27/22 07:49 Baso # (Auto) 0.02 K/uL (0-0.2) 07/27/22 07:49 Immature Gran # (Auto) 0.07 K/uL (0.00-0.02) H 07/27/22 07:49 Sodium 140 mmol/L (136-145) 07/27/22 07:49 Potassium 4.7 mmol/L (3.5-5.1) 07/27/22 07:49 Chloride 109 mmol/L (98-107) H 07/27/22 07:49 Carbon Dioxide 28 mmol/L (21-32) 07/27/22 07:49 Anion Gap 3 (3-11) 07/27/22 07:49 BUN 15 mg/dl (6-23) 07/27/22 07:49 Creatinine 0.67 mg/dl (0.6-1.2) 07/27/22 07:49 Est Cr Clr Drug Dosing 108.2 ml/min 07/27/22 07:49 Est GFR ( Amer) 112.3 ml/min 07/27/22 07:49 Est GFR (Non-Af Amer) 96.9 ml/min 07/27/22 07:49 BUN/Creatinine Ratio 22.4 (10-20) H 07/27/22 07:49 Glucose 110 mg/dl (70-99(Fasting)) H 07/27/22 07:49 Calcium 8.4 mg/dl (8.5-10.1) L 07/27/22 07:49 SARS-CoV-2, RNA, NAAT NEGATIVE (NEGATIVE) 07/26/22 06:20 Impressions Pelvis X-Ray 07/26/22 11:12 XR pelvis 1-2V routine CLINICAL HISTORY: Postoperative evaluation. COMPARISON: Pelvis radiograph July 04, 2022. FINDINGS: Alignment of the total right hip arthroplasty is anatomic. There is no periprosthetic fracture or unexpected radiopaque foreign body. There is an acetabular screw. Pelvic calcifications favor phleboliths. These are unchanged. IMPRESSION: Expected findings following total right hip arthroplasty. ACT 112: Negative or not required by law. Electronically signed by: Dwaine Radford M.D. 07/26/2022 11:40 AM
--- NOTE | 2022-07-27 10:50 | Discharge Summary ---
Date of Service July 27, 2022 Admission HPI Per Admitting Provider History of Present Illness (including history relevant to procedure): This 57-year-old female presents to the clinic today for preoperative history and physical. Patient complains of a 10-year history of right hip and lower back pain. She was followed by pain management who felt that the issues were stemming from her back however for the past 6 months she has noticed her most significant pain in the right hip. She states that she received a ultrasound- guided corticosteroid injection that only alleviated her pain for about 3 days. Patient states that her pain is exacerbated with walking for long periods of time as well as with ascending or descending stairs. She states that recently the pain has migrated from her SI area to the groin. She states that her range of motion is very limited. She has failed all conservative measures and is ready to proceed with surgical intervention. Review Of Systems: A 12 point review of systems is performed and is unremarkable except for those things stated in the HPI and past medical history. Past Medical History: Problems: Right hip pain Overweight Hypercholesterolemia depression Hypothyroidism GERD Lower back pain History of MRSA Procedure History Procedure Procedure Date Comments Ruthie fundoplication Hysterectomy Tummy tuck Tonsillectomy LASEK surgery Allergies and Sensitivities: NKA Social history: Patient states she occasionally consumes alcohol (1-2 drinks per week). Patient states that she quit smoking in 1994. She denies any illicit drug use Family history: Heart disease, pernicious anemia and cancer Current Home Meds: (Last Updated 07/04 11:10) DULoxetine (DULoxetine 60 mg oral delayed release capsule) 60 mg PO Daily estradiol (Estradiol Patch 0.1 mg/24 hours twice weekly transdermal film, extended release) gabapentin (gabapentin 300 mg oral capsule) 300 mg PO Daily lansoprazole 30 mg PO Daily levothyroxine (levothyroxine 50 mcg (0.05 mg) oral tablet) 50 mcg PO Daily Admission Exam Per Admitting Provider Physical Exam: (relevant to the procedure, including heart and lung evaluation) General: Alert and oriented x3 with proper grooming and hygiene Eyes: Pupils are equal and reactive to light with accommodation. Extraocular lids are intact Throat: Deferred due to COVID-19 precautions Cardiac: Regular rate and rhythm no murmurs or gallops appreciated Lungs: Clear to auscultation throughout with no wheezing, rales or rhonchi Abdomen: Obese, nondistended, nontender with NABS Extremities: Right hip; flexion is limited to 110 degrees with referred pain to the groin. Internal rotation to 0 degrees and external rotation to 20 degrees. Stinchfield and straight leg raise test are both positive. Patient has tenderness to palpation in the groin area. She has referred pain to this area with passive AB and AD duction of her lower extremity. Patient is neurovascular intact in the right lower extremity. Neuro: Cranial nerves II through XII intact no motor or sensory deficit Skin: Normal in appearance with no open skin areas or discharge Principal Diagnosis Right hip osteoarthritis Discharge Exam Right hip: Outer dressing was removed. Silverlon is clean dry and intact and reinforced on the proximal portion with a Tegaderm. Patient is able to perform an active straight leg raise test. She is able to actively dorsi and plantarflex her foot without issue. Quad strength 3+ out of 5. Logroll test negative. Patient has no pain with light passive hip flexion to 90 degrees, as well as with light passive internal or external hip rotation. She is neurovascularly intact right lower extremity. Discharge Data Allergies Allergy/AdvReac Type Severity Reaction Status Date / Time No Known Allergies Allergy Verified 07/26/22 06:32 Procedures Performed Operation Date: 07/26/22 09:10 Actual Procedures p Right Total Hip Arthroplasty(Right) - Donnie Dove MD Hospital Course (1) S/P total hip arthroplasty: Patient had an uneventful overnight stay following right total hip arthroplasty. She is very pleased with results of surgery. She is anticipating being discharged home around lunchtime today with in-home physical therapy starting tomorrow morning. Weightbearing as tolerated with walker assistance Total hip precautions reviewed PT/OT Ice with easy wrap Abduction pillow use x6 weeks postoperatively Keep Silverlon dressing in place until 2-week follow-up DVT prophylaxis with aspirin and VIRGEN stockings Pain control with p.o. medications Plan is to discharge home today with in-home physical therapy beginning tomorrow Follow-up with [facility] orthopedics as previously scheduled. With questions contact the clinic at [phone] Total Time Total Time Spent Total Time Spent (In Minutes): 15 minutes Discharge Plan Discharge Items Patient Disposition: Home - Home Health Services Reason For Visit: Right Hip Osteoarthritis Discharge Diagnosis: Right Hip Osteoarthritis Activity: As commented below Lifting: None Bathing: Keep incision dry Bathing Comment: May shower tomorrow Sexual Activity: Wait until after follow-up appointment Exercise/Sports: Wait until after follow-up appointment Driving/Machine Use: No driving until cleared by quality control specialist Weightbearing Comment: as tolerated with walker assistance Non-emergency contact: Surgeon Call non-emergency contact if: you have any medication questions, your pain is not controlled, your temperature is above 101.5, your wound has increased drainage and your wound pain has increased Follow-up/Referrals: Angel Hinojosa PA-C [Primary Care Provider] - Diet: Regular Addtl Attending Provider Instructions: Post-operative Instructions Dear Patient and Family/Friends, Before you are discharged from the hospital, it is important to know what to expect when you get home after surgery. To that end, we have created this sheet of discharge instructions which covers many commonly asked questions. Make sure you go through this sheet in its entirety with your nurse before you are discharged. Please note that we will go over the specifics of your surgery and recovery when you return for your first post-operative visit. Sincerely, Dr. Dove Medications 1. Oxycodone 5 mg: take 1-2 tabs every 4-6 hours as needed for pain relief. A prescription will be sent to your pharmacy for this medication. 2. Diclofenac Sodium 50 mg: take 1 tab twice daily for 30 days post operatively for pain and inflammation relief. A prescription will be sent to your pharmacy with 1 refill. 3. Aspirin 81 mg: take 1 tab twice daily for the first 30 days post operatively for blood clot prevention. Please purchase. 4. Extra Strength Tylenol 500 mg: take 2 tabs every 6-8 hours as need for additional pain relief. Please purchase. Pain Expect to be in a fair amount of pain after surgery. Remember, our goal is not to eliminate your pain, but to make it tolerable. It is a good idea to stay ahead of your pain by taking the medications you were prescribed once you get home. Typically, the pain starts improving 3-7 days after surgery. You should start weaning off the narcotic pain medication (oxycodone, hydrocodone, hydromorphone, morphine) as soon as your pain improves. Please call our office if your pain is not adequately controlled. Ice Ice your operative site at least 5 times a day for 15-30 minutes at a time. Make sure you have a thin cloth between the ice or cooling unit and your skin to prevent koroma bite. This is especially important if you received a nerve block. Continue icing your operative site for the first 5-7 days after surgery, then as needed. Diet/Nausea/Vomiting Start by drinking clear liquids and eating crackers. If you can tolerate this, then you may resume your normal diet. If you feel nauseated or vomit, take Zofran/ondansetron (if prescribed). Please call our office if you have intractable nausea or vomiting, or, if after hours, you may go to the Emergency Room for help. Constipation Constipation is a common side effect of narcotic pain medication. If you have not had a bowel movement within 2 days after surgery, we recommend purchasing an over the counter laxative such as Milk of Magnesia, Dulcolax, or Miralax from a local pharmacy, and taking it as instructed. Call our clinic if any questions. Nerve block The anesthesia team sometimes places a nerve block to help with post-operative pain control. This results in significant numbness and inability to move the extremity. The nerve block usually wears off in 8-12 hours, but sometimes can last up to 24 hours. Please call our office if you are still unable to move your extremity after 24 hours, unless you received a pain pump to take home. Nerve blocks typically wear off quickly, so start taking pain medication as soon as you start feeling soreness near your surgical site. Weight bearing and Range of Motion. Do not bear any weight through your operative extremity immediately after surgery. If you had upper extremity surgery, do not lift anything with that arm. If you are in a knee brace, keep it locked in place until your follow-up. We will discuss your weight bearing, range of motion, and lifting restrictions in detail at your first post-operative appointment. Continuous Passive Motion (CPM) Machine If you were prescribed a CPM machine, it will start after your first post- operative appointment, at which time we will give you instructions on the range of motion settings and duration of treatment Physical therapy You will be given a prescription for physical therapy or occupational therapy at your first post-operative appointment. Typically, patients start therapy within 1 week of surgery Wound care and showering We will inspect your wound at your first post-operative visit, and may do a dressing change at that time. Most patients will be in a water-proof dressing that is removed 14 days after surgery. It is normal to see some dried blood on the dressing. Do not remove your dressing, paper strips or sutures yourself unless you are given permission. Showering is allowed the day after surgery. Do not scrub or remove any dressings. The wound should not be submerged underwater (i.e. in a bathtub or pool) until 4 weeks after surgery VIRGEN stockings If you were given white stockings, these are to be worn at all times except to shower (on both legs) for the first 2 weeks after surgery. Driving You may not drive while taking narcotic pain medication or while in a cast, splint, sling or brace. You, the patient, need to make the final determination about when you are safe to drive, however, the earliest you may consider driving after surgery is below: Hand/Wrist/Elbow Surgery: 3 days Shoulder Surgery: 2 weeks Hip,/Knee/Ankle Surgery: 4 weeks Fracture repair: 6 weeks Return to Work Your return to work depends on what surgery was done and what type of work you do. Please bring any paperwork your employer needs completed to your first post-operative visit. Also, bring a description of your job duties, as this helps us to understand what risks you may face at work. Travel Avoid long distance travel (greater than 1 hour) in airplanes and cars for the first 6 weeks after surgery. If you must travel, you need to have a Doppler ultrasound done before you travel to rule out a blood clot in your legs. Follow-up You should have a follow-up appointment already scheduled 1-2 days after surgery. If not, please contact our office to make this appointment before you leave the hospital. When to call the office It is normal to have swelling and bruising in the limb that was operated on. This will improve with time. It is also normal to have fevers for the first 2 days after surgery. Reasons you should call your doctor include: Uncontrolled pain; Nausea, vomiting, or constipation that does not improve with medication; Fevers over 101.5, chills, sweats; Drainage or bleeding from the wound; Foul odor; Spreading areas of redness; Any other concerns Pending Studies at Discharge: No Stand-Alone Forms: [facility] Medications and DC Order Prescriptions: New aspirin 81 mg Tablet,Delayed Release (Dr/Ec) 81 mg PO BID 30 Days Qty: 60 0RF oxycodone 5 mg tablet 5 mg PO Q4H Qty: 28 0RF diclofenac sodium 75 mg tablet,delayed release (DR/EC) 75 mg PO BID 30 Days Qty: 60 1RF Continued coenzyme Q10 [Co Q-10] 10 mg Capsule 10 mg PO QAM levothyroxine 50 mcg Tablet 50 mcg PO QAM lansoprazole 30 mg Capsule,Delayed Release(Dr/Ec) 30 mg PO BID gabapentin 300 mg Capsule 300 mg PO HS bupropion HCl [Wellbutrin XL] 150 mg Tablet Extended Release 24 Hr 150 mg PO QAM duloxetine 60 mg Capsule,Delayed Release(Dr/Ec) 60 mg PO BID cholecalciferol (vitamin D3) [Vitamin D3] 125 mcg (5,000 unit) Tablet 125 mcg PO QAM cyanocobalamin (vitamin B-12) 5,000 mcg Tablet,Disintegrating 5,000 mcg PO HS One-A-Day Women's 50 Plus 400-20 mcg Tablet 1 tab PO QAM Collagen 1500 Plus C 500 mg-800 mcg- 50 mg Capsule 3 cap PO HS estradiol 0.1 mg/24 hr Patch Weekly 0.1 mg topical [id number] Discontinued naproxen sodium [Aleve] 220 mg Tablet 440 mg PO BID Discharge Orders: Discharge Order (Routine); Ordered 07/27/22 Ordered By: Howard Jasmine Admission Data Admit Date/Time: 07/26/22 11:12 Attending Provider: Donnie Dove Admit Provider: Donnie Dove Primary Care Provider: Angel Hinojosa Other Providers: [facility],Home Health
== END 2022-07-27 13:34 | disposition home health service (06) ==
LOC: 3E 06:04 → ASU 06:04